=== PATIENT | male | born 1965 | race African-American/Black ===

== ENCOUNTER 2017-10-13 10:43 | Emergency (ER) | payer OTHER ==
[~2017-10-13] VITALS: Ht 185.4 cm; Wt 90.9 kg
[~2017-10-13 10:43] MED LIST: ARIP10TA8 PO; BUSP10TA23 PO; GABA-531 PO; LISI-662 PO; METO25 PO
[2017-10-13 12:01] LABS: ANION GAP 11 mmol/L (8-16); CALCIUM, TOTAL 8.8 mg/dL (8.8-10.5); CARBON DIOXIDE 26 mmol/L (22-29); CHLORIDE 100 mmol/L (98-107); GLOMERULAR FILTR. RATE CALC > 60 mL/min (>60); GLUCOSE,RANDOM 98 mg/dL (70-110); POTASSIUM 3.2 mmol/L (3.5-5.1); SODIUM SERUM 137 mmol/L (136-145); UREA NITROGEN, BLOOD 12 mg/dL (7-18)
[2017-10-13 12:07] LABS: ALANINE AMINOTRANSFERASE 40 U/L (12-78); ALBUMIN 3.8 g/dL (3.4-5.0); ALKALINE PHOSPHATASE 86 U/L (46-116); ASPARTATE AMINOTRANSFERASE 41 U/L (15-37); BILIRUBIN,TOTAL 0.3 mg/dL (0.1-1.0); LIPASE 302 U/L (73-393); TOTAL PROTEIN, SERUM 7.5 g/dL (6.4-8.2)
[2017-10-13 12:08] LABS: AMPHET/METH SCREEN,URINE NEGATIVE (NEGATIVE); BARBITURATE SCREEN, URINE NEGATIVE (NEGATIVE); BENZODIAZEPINES SCREEN,URINE NEGATIVE (NEGATIVE); CANNABINOID SCREEN,URINE NEGATIVE (NEGATIVE); COCAINE SCREEN,URINE NEGATIVE (NEGATIVE); METHADONE SCREEN, URINE NEGATIVE (NEGATIVE); OPIATE SCREEN,URINE NEGATIVE (NEGATIVE)
[2017-10-13 12:09] LABS: PHENCYCLIDINE SCREEN,URINE NEGATIVE (NEGATIVE)
[2017-10-13 12:26] LABS: BASOPHILS % (AUTO) 0.8 % (0.0-2.0); HEMATOCRIT 39.8 % (41-53); HEMOGLOBIN 14.2 g/dL (13.5-17.5); LYMPHOCYTES # (AUTO) 2.7 K/uL (1.0-4.8); LYMPHOCYTES % (AUTO) 32.5 % (22.0-44.0); MEAN CORPUSCULAR HEMOGLOBIN 34.9 pg (26.0-34.0); MEAN CORPUSCULAR HGB CONC 35.7 G/dL (31.0-37.0); MEAN CORPUSCULAR VOLUME 98 fL (80-100); MONOCYTES # (AUTO) 0.6 K/uL (0.1-1.0); MONOCYTES % (AUTO) 7.5 % (2.0-9.0); NEUTROPHILS # (AUTO) 4.7 K/uL (1.8-7.7); NEUTROPHILS % (AUTO) 57.2 % (40.0-70.0); PLATELET COUNT (AUTO) 287 K/uL (150-450); RED BLOOD CELL COUNT(AUTO) 4.07 MIL/uL (4.50-5.90); RED CELL DISTRIBUTION WIDTH 13.3 % (11.5-14.5)
[2017-10-13 13:47] VITALS: BP 120/98
[2017-10-13] MEDS ORDERED: SERT100T12 PO (16:03)
[2017-10-13] MEDS ORDERED: HYDR25TA PO (16:03)
[2017-10-13] MEDS ORDERED: LISI40TA4 PO (16:03)
[2017-10-16] MEDS ORDERED: QUET25TA PO (08:09)
[2017-10-16] MEDS ORDERED: SERT50TA12 PO (08:09)
== END 2017-10-13 15:01 | disposition home or self-care (01) ==
LOC: EMS 10:46
DX: T51.91XA Toxic effect of unspecified alcohol, accidental (unintentional), initial encounter (principal); F20.9 Schizophrenia, unspecified; F17.210 Nicotine dependence, cigarettes, uncomplicated; R07.9 Chest pain, unspecified; F32.9 Major depressive disorder, single episode, unspecified; I10 Essential (primary) hypertension; Y92.89 Other specified places as the place of occurrence of the external cause
CPT/HCPCS: 36415; 71045; 80053; 80307; 83690; 84484; 85025; 93005; 99285; 99406; G0480

== ENCOUNTER 2017-10-22 07:56 | Emergency (ER) | payer OTHER, MEDICAID ==
[~2017-10-22] VITALS: Ht 185.4 cm; Wt 84.1 kg
[~2017-10-22 07:56] MED LIST changes: -ARIP10TA8 PO; -BUSP10TA23 PO; -GABA-531 PO; +HYDR25TA PO; -LISI-662 PO; +LISI40TA4 PO; -METO25 PO; +QUET25TA PO; +SERT50TA12 PO
[2017-10-22] MEDS ORDERED: KETOROLAC TROMETHAMINE 60 MG/2 ML VIAL IM ONE (08:45)
[2017-10-22 08:47] VITALS: BP 143/95
== END 2017-10-22 09:21 | disposition home or self-care (01) ==
LOC: EMS 07:57
DX: M62.838 Other muscle spasm (principal); G89.29 Other chronic pain; F17.210 Nicotine dependence, cigarettes, uncomplicated; I11.9 Hypertensive heart disease without heart failure; Z88.6 Allergy status to analgesic agent; Z88.8 Allergy status to other drugs, medicaments and biological substances; Z91.011 Allergy to milk products
CPT/HCPCS: 96372; 99283; 99406; J1885

== ENCOUNTER 2017-12-05 19:55 | Emergency (ER) | payer MEDICARE, MEDICAID ==
[~2017-12-05] VITALS: Ht 185.4 cm; Wt 84.5 kg
[2017-12-05 20:28] LABS: BASOPHILS % (AUTO) 0.6 % (0.0-2.0); EOSINOPHILS % (AUTO) 2.4 % (1.0-6.0); HEMOGLOBIN 15.6 g/dL (13.5-17.5); LYMPHOCYTES # (AUTO) 1.5 K/uL (1.0-4.8); LYMPHOCYTES % (AUTO) 19.2 % (22.0-44.0); MEAN CORPUSCULAR HEMOGLOBIN 35.1 pg (26.0-34.0); MEAN CORPUSCULAR HGB CONC 36.2 G/dL (31.0-37.0); MEAN CORPUSCULAR VOLUME 97 fL (80-100); MONOCYTES # (AUTO) 0.8 K/uL (0.1-1.0); MONOCYTES % (AUTO) 9.7 % (2.0-9.0); NEUTROPHILS # (AUTO) 5.4 K/uL (1.8-7.7); NEUTROPHILS % (AUTO) 68.1 % (40.0-70.0); PLATELET COUNT (AUTO) 243 K/uL (150-450); RED BLOOD CELL COUNT(AUTO) 4.45 MIL/uL (4.50-5.90); RED CELL DISTRIBUTION WIDTH 13.4 % (11.5-14.5)
[2017-12-05 20:40] LABS: ANION GAP 7 mmol/L (8-16); CALCIUM, TOTAL 9.4 mg/dL (8.8-10.5); CARBON DIOXIDE 31 mmol/L (22-29); CHLORIDE 94 mmol/L (98-107); CREATININE 1.19 mg/dL (0.60-1.30); GLOMERULAR FILTR. RATE CALC > 60 mL/min (>60); GLUCOSE,RANDOM 127 mg/dL (70-110); POTASSIUM 3.2 mmol/L (3.5-5.1); SODIUM SERUM 132 mmol/L (136-145); UREA NITROGEN, BLOOD 9 mg/dL (7-18)
[2017-12-05 20:49] LABS: ALANINE AMINOTRANSFERASE 156 U/L (12-78); ALBUMIN 3.7 g/dL (3.4-5.0); ALKALINE PHOSPHATASE 124 U/L (46-116); ASPARTATE AMINOTRANSFERASE 199 U/L (15-37); BILIRUBIN,TOTAL 1.2 mg/dL (0.1-1.0); LIPASE 847 U/L (73-393); TOTAL PROTEIN, SERUM 8.4 g/dL (6.4-8.2)
[2017-12-05 21:06] LABS: APPEARANCE,URINE CLEAR (CLEAR); BILIRUBIN,URINE NEGATIVE (NEGATIVE); GLUCOSE, URINE (UA) NEGATIVE (NEGATIVE); KETONES,URINE NEGATIVE (NEGATIVE); LEUKOCYTE ESTERASE ,URINE NEGATIVE (NEGATIVE); NITRATE,URINE NEGATIVE (NEGATIVE); OCCULT BLOOD,URINE NEGATIVE (NEGATIVE); PH,URINE 7.5 (5.0-8.0); PROTEIN,URINE NEGATIVE (NEGATIVE); UROBILINOGEN,URINE 0.2 mg/dL (<=1.0)
[2017-12-05] MEDS ORDERED: SODIUM CHLORIDE 0.9% 1,000 ML IV ONE (22:45)
[2017-12-05] MEDS ORDERED: MORPHINE SULFATE 4 MG/ML SYRINGE IVP ONE (22:45)
[2017-12-05] MEDS: POTASSIUM CHL 10 MEQ/WATER 50 ML IV SCH (23:08)
[2017-12-05] MEDS ORDERED: HydrALAZINE HCL 20 MG/ML VIAL IVP ONE (23:15)
[2017-12-06] MEDS: POTASSIUM CHL 10 MEQ/WATER 50 ML IV SCH (00:08)
[2017-12-06 00:23] VITALS: BP 183/96
== END 2017-12-06 00:47 | disposition short-term general hospital (02) ==
LOC: EMS 19:57
DX: K85.90 Acute pancreatitis without necrosis or infection, unspecified (principal); E87.6 Hypokalemia; I10 Essential (primary) hypertension; F17.210 Nicotine dependence, cigarettes, uncomplicated; Z91.011 Allergy to milk products; Z88.8 Allergy status to other drugs, medicaments and biological substances
CPT/HCPCS: 36415; 76705; 80053; 81003; 83690; 85025; 96361; 96365; 96375; 99285; J0360; J2270; J3480 ×2; J7030

== ENCOUNTER 2018-07-03 10:55 | Emergency (ER) | payer MEDICARE, OTHER ==
[~2018-07-03] VITALS: Ht 185.4 cm; Wt 84.5 kg
[2018-07-03] MEDS ORDERED: THIA100T67 PO (11:19)
[2018-07-03] MEDS ORDERED: OLAN5TAB2 PO (11:19)
[2018-07-03] MEDS ORDERED: FOLI1 PO (11:19)
[2018-07-03] MEDS ORDERED: CEPH500 PO (11:19)
[2018-07-03] MEDS ORDERED: MIRT15 PO (11:19)
[2018-07-03] MEDS ORDERED: GABA-531 PO (11:19)
[2018-07-03] MEDS ORDERED: LISI-662 PO (11:19)
[2018-07-03] MEDS ORDERED: TAMS0.4C32 PO (11:19)
[2018-07-03] MEDS ORDERED: LIDOCAINE 5% TRANSDERMAL PATCH TD ONE (12:45)
[2018-07-03] MEDS ORDERED: HYDROCODONE/ACETAMINOPHEN 5-325 MG TABLET PO ONE (12:45)
[2018-07-03 13:33] VITALS: BP 145/94
== END 2018-07-03 13:55 | disposition home or self-care (01) ==
LOC: EMS 10:56
DX: M54.5 Low back pain (principal); F17.210 Nicotine dependence, cigarettes, uncomplicated; F31.9 Bipolar disorder, unspecified; I10 Essential (primary) hypertension; F20.9 Schizophrenia, unspecified; Z79.899 Other long term (current) drug therapy; Z88.8 Allergy status to other drugs, medicaments and biological substances

== ENCOUNTER 2018-09-12 16:35 | Emergency (ER) | payer MEDICARE, OTHER ==
[~2018-09-12] VITALS: Ht 177.8 cm; Wt 82.7 kg
[~2018-09-12 16:35] MED LIST changes: +CEPH500 PO; +FOLI1 PO; +GABA-531 PO; +LISI-662 PO; -LISI40TA4 PO; +MIRT15 PO; +OLAN5TAB2 PO; -QUET25TA PO; -SERT50TA12 PO; +TAMS0.4C32 PO; +THIA100T67 PO
[2018-09-12 16:48] VITALS: BP 152/74
[2018-09-12 16:59] LABS: GLUCOSE,POINT OF CARE 81 MG/DL (70-110)
[2018-09-12 17:33] LABS: BASOPHILS % (AUTO) 1.5 % (0.0-2.0); EOSINOPHILS % (AUTO) 2.8 % (1.0-6.0); HEMOGLOBIN 15.7 g/dL (13.5-17.5); LYMPHOCYTES # (AUTO) 2.6 K/uL (1.0-4.8); LYMPHOCYTES % (AUTO) 43.7 % (22.0-44.0); MEAN CORPUSCULAR HEMOGLOBIN 35.1 pg (26.0-34.0); MEAN CORPUSCULAR HGB CONC 34.8 G/dL (31.0-37.0); MEAN CORPUSCULAR VOLUME 101 fL (80-100); MONOCYTES # (AUTO) 0.3 K/uL (0.1-1.0); MONOCYTES % (AUTO) 5.6 % (2.0-9.0); NEUTROPHILS # (AUTO) 2.8 K/uL (1.8-7.7); NEUTROPHILS % (AUTO) 46.4 % (40.0-70.0); PLATELET COUNT (AUTO) 279 K/uL (150-450); RED BLOOD CELL COUNT(AUTO) 4.47 MIL/uL (4.50-5.90); RED CELL DISTRIBUTION WIDTH 13.8 % (11.5-14.5)
[2018-09-12 17:44] LABS: ANION GAP 12 mmol/L (8-16); CALCIUM, TOTAL 8.9 mg/dL (8.8-10.5); CARBON DIOXIDE 26 mmol/L (22-29); CHLORIDE 104 mmol/L (98-107); GLOMERULAR FILTR. RATE CALC > 60 mL/min (>60); GLUCOSE,RANDOM 75 mg/dL (70-110); POTASSIUM 3.6 mmol/L (3.5-5.1); SODIUM SERUM 142 mmol/L (136-145); UREA NITROGEN, BLOOD 12 mg/dL (7-18)
[2018-09-12 17:51] LABS: ALANINE AMINOTRANSFERASE 38 U/L (12-78); ALBUMIN 4.2 g/dL (3.4-5.0); ALKALINE PHOSPHATASE 93 U/L (46-116); ASPARTATE AMINOTRANSFERASE 66 U/L (15-37); BILIRUBIN,TOTAL 0.5 mg/dL (0.1-1.0); TOTAL PROTEIN, SERUM 8.5 g/dL (6.4-8.2)
[2018-09-12 18:27] LABS: AMPHET/METH SCREEN,URINE NEGATIVE (NEGATIVE); BARBITURATE SCREEN, URINE NEGATIVE (NEGATIVE); BENZODIAZEPINES SCREEN,URINE NEGATIVE (NEGATIVE); CANNABINOID SCREEN,URINE NEGATIVE (NEGATIVE); COCAINE SCREEN,URINE NEGATIVE (NEGATIVE); METHADONE SCREEN, URINE NEGATIVE (NEGATIVE); OPIATE SCREEN,URINE NEGATIVE (NEGATIVE); PHENCYCLIDINE SCREEN,URINE NEGATIVE (NEGATIVE)
[2018-09-12 18:34] LABS: APPEARANCE,URINE CLEAR (CLEAR); BILIRUBIN,URINE NEGATIVE (NEGATIVE); GLUCOSE, URINE (UA) NEGATIVE (NEGATIVE); KETONES,URINE NEGATIVE (NEGATIVE); LEUKOCYTE ESTERASE ,URINE NEGATIVE (NEGATIVE); NITRATE,URINE NEGATIVE (NEGATIVE); OCCULT BLOOD,URINE NEGATIVE (NEGATIVE); PROTEIN,URINE NEGATIVE (NEGATIVE); UROBILINOGEN,URINE 0.2 mg/dL (<=1.0)
[2018-09-12 18:50] LABS: BACTERIA,URINE None Seen /HPF (None Seen); RBC,URINE None Seen /HPF (0-2); SQUAMOUS EPITHELIAL CELL,UR None Seen /LPF (None Seen); WBC,URINE None Seen /HPF (0-5)
== END 2018-09-12 18:52 | disposition left against medical advice (07) ==
LOC: EMS 16:36
DX: R42 Dizziness and giddiness (principal); Z53.21 Procedure and treatment not carried out due to patient leaving prior to being seen by health care provider
CPT/HCPCS: 36415; 80053; 80307; 81001; 82962; 84484; 85025; 93005; G0480

== ENCOUNTER 2018-10-11 10:22 | Emergency (ER) | payer MEDICARE, OTHER ==
[~2018-10-11] VITALS: Ht 185.4 cm; Wt 99.1 kg
[2018-10-11] MEDS ORDERED: MAGNESIUM SULFATE 2 GM, MVI, ADULT NO.1 WITH VIT K 10 ML, THIAMINE HCL 100 MG, FOLIC AC... IV ONE ×5 (11:30)
[2018-10-11 12:03] LABS: BASOPHILS % (AUTO) 0.6 % (0.0-2.0); EOSINOPHILS % (AUTO) 1.4 % (1.0-6.0); HEMATOCRIT 40.5 % (41-53); HEMOGLOBIN 13.9 g/dL (13.5-17.5); LYMPHOCYTES # (AUTO) 0.8 K/uL (1.0-4.8); LYMPHOCYTES % (AUTO) 22.6 % (22.0-44.0); MEAN CORPUSCULAR HEMOGLOBIN 35.1 pg (26.0-34.0); MEAN CORPUSCULAR HGB CONC 34.3 G/dL (31.0-37.0); MEAN CORPUSCULAR VOLUME 102 fL (80-100); MONOCYTES # (AUTO) 0.3 K/uL (0.1-1.0); MONOCYTES % (AUTO) 8.2 % (2.0-9.0); NEUTROPHILS # (AUTO) 2.3 K/uL (1.8-7.7); NEUTROPHILS % (AUTO) 67.2 % (40.0-70.0); PLATELET COUNT (AUTO) 187 K/uL (150-450); RED BLOOD CELL COUNT(AUTO) 3.96 MIL/uL (4.50-5.90); RED CELL DISTRIBUTION WIDTH 13.9 % (11.5-14.5)
[2018-10-11 12:12] LABS: ANION GAP 9 mmol/L (8-16); CALCIUM, TOTAL 8.8 mg/dL (8.8-10.5); CARBON DIOXIDE 26 mmol/L (22-29); CHLORIDE 103 mmol/L (98-107); CREATININE 0.81 mg/dL (0.60-1.30); GLOMERULAR FILTR. RATE CALC > 60 mL/min (>60); GLUCOSE,RANDOM 159 mg/dL (70-110); POTASSIUM 3.6 mmol/L (3.5-5.1); SODIUM SERUM 138 mmol/L (136-145); UREA NITROGEN, BLOOD 8 mg/dL (7-18)
[2018-10-11 12:18] LABS: ALANINE AMINOTRANSFERASE 50 U/L (12-78); ALBUMIN 3.5 g/dL (3.4-5.0); ALKALINE PHOSPHATASE 76 U/L (46-116); ASPARTATE AMINOTRANSFERASE 122 U/L (15-37); BILIRUBIN,TOTAL 0.3 mg/dL (0.1-1.0); TOTAL PROTEIN, SERUM 7.5 g/dL (6.4-8.2)
[2018-10-11 12:37] LABS: APPEARANCE,URINE CLEAR (CLEAR); BILIRUBIN,URINE NEGATIVE (NEGATIVE); GLUCOSE, URINE (UA) 500 mg/dL (NEGATIVE); KETONES,URINE TRACE mg/dL (NEGATIVE); LEUKOCYTE ESTERASE ,URINE TRACE (NEGATIVE); NITRATE,URINE NEGATIVE (NEGATIVE); OCCULT BLOOD,URINE NEGATIVE (NEGATIVE); PROTEIN,URINE POS 1+ (NEGATIVE); UROBILINOGEN,URINE 0.2 mg/dL (<=1.0)
[2018-10-11 12:41] LABS: AMPHET/METH SCREEN,URINE NEGATIVE (NEGATIVE); BARBITURATE SCREEN, URINE NEGATIVE (NEGATIVE); BENZODIAZEPINES SCREEN,URINE NEGATIVE (NEGATIVE); CANNABINOID SCREEN,URINE NEGATIVE (NEGATIVE); COCAINE SCREEN,URINE NEGATIVE (NEGATIVE); METHADONE SCREEN, URINE NEGATIVE (NEGATIVE); OPIATE SCREEN,URINE NEGATIVE (NEGATIVE)
[2018-10-11 12:42] LABS: PHENCYCLIDINE SCREEN,URINE NEGATIVE (NEGATIVE)
[2018-10-11 13:14] LABS: BACTERIA,URINE None Seen /HPF (None Seen); RBC,URINE 0-2 /HPF (0-2); WBC,URINE 0-2 /HPF (0-5)
[2018-10-11 15:10] VITALS: BP 145/85
== END 2018-10-11 15:18 | disposition home or self-care (01) ==
LOC: EMS 10:23
DX: S09.90XA Unspecified injury of head, initial encounter (principal); F10.129 Alcohol abuse with intoxication, unspecified; Y90.6 Blood alcohol level of 120-199 mg/100 ml; F17.210 Nicotine dependence, cigarettes, uncomplicated; F32.9 Major depressive disorder, single episode, unspecified; I11.9 Hypertensive heart disease without heart failure; F20.9 Schizophrenia, unspecified; Z88.8 Allergy status to other drugs, medicaments and biological substances; Z79.899 Other long term (current) drug therapy; W19.XXXA Unspecified fall, initial encounter; Y93.89 Activity, other specified; Y92.89 Other specified places as the place of occurrence of the external cause; Y99.8 Other external cause status
CPT/HCPCS: 36415; 70450; 72125; 80053; 80307; 81001; 85025; 96365; 99285; 99406; G0480; J3411; J3475; J3490 ×2; J7030

== ENCOUNTER 2018-12-01 11:56 | Inpatient (IN) | payer OTHER, MEDICAID ==
[~2018-12-01] VITALS: Ht 185.4 cm; Wt 85.1 kg
[~2018-12-01 11:56] MED LIST changes: -CEPH500 PO; -FOLI1 PO
[2018-12-01 13:09] LABS: BASOPHILS % (AUTO) 1.2 % (0.0-2.0); EOSINOPHILS % (AUTO) 4.5 % (1.0-6.0); HEMATOCRIT 42.3 % (41-53); HEMOGLOBIN 14.5 g/dL (13.5-17.5); LYMPHOCYTES # (AUTO) 2.1 K/uL (1.0-4.8); LYMPHOCYTES % (AUTO) 35.5 % (22.0-44.0); MEAN CORPUSCULAR HEMOGLOBIN 34.2 pg (26.0-34.0); MEAN CORPUSCULAR HGB CONC 34.2 G/dL (31.0-37.0); MEAN CORPUSCULAR VOLUME 100 fL (80-100); MONOCYTES # (AUTO) 0.4 K/uL (0.1-1.0); MONOCYTES % (AUTO) 7.6 % (2.0-9.0); NEUTROPHILS % (AUTO) 51.2 % (40.0-70.0); PLATELET COUNT (AUTO) 279 K/uL (150-450); RED BLOOD CELL COUNT(AUTO) 4.22 MIL/uL (4.50-5.90); RED CELL DISTRIBUTION WIDTH 13.5 % (11.5-14.5)
[2018-12-01 13:29] LABS: ANION GAP 9 mmol/L (8-16); CALCIUM, TOTAL 9.3 mg/dL (8.8-10.5); CARBON DIOXIDE 28 mmol/L (22-29); CHLORIDE 98 mmol/L (98-107); CREATININE 1.09 mg/dL (0.60-1.30); GLOMERULAR FILTR. RATE CALC > 60 mL/min (>60); GLUCOSE,RANDOM 131 mg/dL (70-110); POTASSIUM 3.7 mmol/L (3.5-5.1); SODIUM SERUM 135 mmol/L (136-145); UREA NITROGEN, BLOOD 14 mg/dL (7-18)
[2018-12-01 13:34] LABS: ALANINE AMINOTRANSFERASE 27 U/L (12-78); ALBUMIN 3.9 g/dL (3.4-5.0); ALKALINE PHOSPHATASE 71 U/L (46-116); ASPARTATE AMINOTRANSFERASE 36 U/L (15-37); BILIRUBIN,TOTAL 0.3 mg/dL (0.1-1.0)
[2018-12-01 14:14] LABS: AMPHET/METH SCREEN,URINE NEGATIVE (NEGATIVE); BARBITURATE SCREEN, URINE NEGATIVE (NEGATIVE); BENZODIAZEPINES SCREEN,URINE NEGATIVE (NEGATIVE); CANNABINOID SCREEN,URINE NEGATIVE (NEGATIVE); COCAINE SCREEN,URINE NEGATIVE (NEGATIVE); METHADONE SCREEN, URINE NEGATIVE (NEGATIVE); OPIATE SCREEN,URINE NEGATIVE (NEGATIVE)
[2018-12-01 14:16] LABS: PHENCYCLIDINE SCREEN,URINE NEGATIVE (NEGATIVE)
[2018-12-01 14:19] LABS: APPEARANCE,URINE CLEAR (CLEAR); BILIRUBIN,URINE NEGATIVE (NEGATIVE); GLUCOSE, URINE (UA) NEGATIVE (NEGATIVE); KETONES,URINE NEGATIVE (NEGATIVE); LEUKOCYTE ESTERASE ,URINE NEGATIVE (NEGATIVE); NITRATE,URINE NEGATIVE (NEGATIVE); OCCULT BLOOD,URINE NEGATIVE (NEGATIVE); PH,URINE 5.5 (5.0-8.0); PROTEIN,URINE NEGATIVE (NEGATIVE); UROBILINOGEN,URINE 0.2 mg/dL (<=1.0)
[2018-12-01] MEDS ORDERED: HALOPERIDOL 5 MG TABLET PO PRN (14:30)
[2018-12-01] MEDS ORDERED: ZOLPIDEM TARTRATE 10 MG TABLET PO PRN (14:30)
[2018-12-01] MEDS ORDERED: DEXAMETHASONE SOD PHOS 4 MG/ML 5 ML VIAL IM ONE (15:15)
[2018-12-01] MEDS ORDERED: HydrOXYzine HCL 50 MG TABLET PO ONE (15:15)
[2018-12-01] MEDS ORDERED: ACETAMINOPHEN 500 MG TABLET PO ONE (15:15)
[2018-12-01 16:45] VITALS: BP 134/79
[2018-12-01] MEDS ORDERED: LOPERAMIDE HCL 2 MG CAPSULE PO PRN (18:00)
[2018-12-01] MEDS ORDERED: ALBUTEROL SULFATE HFA 90 MCG/PUFF 8 GM INHALER IH PRN (18:00)
[2018-12-01] MEDS ORDERED: ONDANSETRON HCL 4 MG TABLET PO PRN (18:00)
[2018-12-01] MEDS ORDERED: BENZOCAINE/MENTHOL LOZENGE MM PRN (18:00)
[2018-12-01] MEDS ORDERED: MAGNESIUM HYDROXIDE SUSPENSION 30 ML UDCUP PO PRN (18:00)
[2018-12-01] MEDS ORDERED: CloNIDine HCL 0.1 MG TABLET PO PRN (18:00)
[2018-12-01] MEDS ORDERED: BACITRACIN 28.4 GM OINTMENT TP PRN (18:00)
[2018-12-01] MEDS ORDERED: PETROLATUM,WHITE 28 GM JELLY TP PRN (18:00)
[2018-12-01] MEDS: OMEPRAZOLE 20 MG CAPSULE PO SCH (20:48)
[2018-12-01] MEDS: DOCUSATE SODIUM 100 MG CAPSULE PO SCH (20:48)
[2018-12-01] MEDS: NICOTINE 21 MG/24 HOUR PATCH TD SCH (20:49)
[2018-12-02 02:02] VITALS: BP 138/82
[2018-12-02] MEDS: LORazepam 2 MG TABLET PO PRN ×3 (02:02→16:35)
[2018-12-02] MEDS: MAG HYDROX/AL HYDROX/SIMETH ES 30 ML SUSPENSION UDCUP PO PRN ×2 (02:02→18:14)
[2018-12-02] MEDS: ACETAMINOPHEN 325 MG TABLET PO PRN ×2 (02:03→16:34)
[2018-12-02] MEDS ORDERED: PNEUMOCOCCAL VACCINE POLYVALENT 0.5 ML VIAL [PPSV23] IM ONE (04:45)
[2018-12-02 08:23] VITALS: BP 140/90
[2018-12-02] MEDS: OMEPRAZOLE 20 MG CAPSULE PO SCH (08:32)
[2018-12-02] MEDS: DOCUSATE SODIUM 100 MG CAPSULE PO SCH (08:33)
[2018-12-02] MEDS: NICOTINE 21 MG/24 HOUR PATCH TD SCH (08:33)
[2018-12-02 08:34] LABS: CHOL/HDL RATIO 4.6 (4.2-7.3); FREE T4 (FREE THYROXINE) 0.89 ng/dL (0.76-1.46); THYROID STIMULATING HORMONE 0.53 uIU/mL (0.36-3.74)
[2018-12-02] MEDS ORDERED: DENTURE ADHESIVE 68 GM CREAM DT PRN (08:45)
[2018-12-02] MEDS ORDERED: DICLOFENAC SODIUM 1% 100 GM GEL [2GM] TP PRN (08:45)
[2018-12-02] MEDS ORDERED: DENTURE CLEANSER TABLET [8'S] DT PRN (13:45)
[2018-12-02 16:34] VITALS: BP 130/79
[2018-12-02 17:34] VITALS: BP 130/79
[2018-12-02 18:21] VITALS: BP 140/80
[2018-12-02] MEDS ORDERED: QUEtiapine FUMARATE 100 MG TABLET PO SCH (21:00)
[2018-12-03 01:21] VITALS: BP 139/87
[2018-12-03] MEDS: LORazepam 2 MG TABLET PO PRN ×2 (01:29→09:41)
[2018-12-03] MEDS: ACETAMINOPHEN 325 MG TABLET PO PRN ×2 (01:30→09:01)
[2018-12-03 08:23] VITALS: BP 145/84
[2018-12-03] MEDS: OMEPRAZOLE 20 MG CAPSULE PO SCH (08:54)
[2018-12-03] MEDS: DOCUSATE SODIUM 100 MG CAPSULE PO SCH (08:54)
[2018-12-03] MEDS: NICOTINE 21 MG/24 HOUR PATCH TD SCH (08:56)
[2018-12-03] MEDS ORDERED: SERTRALINE HCL 50 MG TABLET PO SCH (09:00)
[2018-12-03] MEDS ORDERED: HYDROCHLOROTHIAZIDE 25 MG TABLET PO SCH (09:00)
[2018-12-03] MEDS ORDERED: GABAPENTIN 300 MG CAPSULE PO SCH (09:00)
[2018-12-03] MEDS ORDERED: TAMSULOSIN HCL 0.4 MG CAPSULE PO SCH (09:00)
[2018-12-03] MEDS ORDERED: THIAMINE HCL 100 MG TABLET PO SCH (09:00)
[2018-12-03] MEDS ORDERED: LISINOPRIL 20 MG TABLET PO SCH (09:00)
[2018-12-03] MEDS ORDERED: OMEP20 PO (13:02)
[2018-12-03] MEDS ORDERED: SERT50TA12 PO (13:02)
[2018-12-03] MEDS ORDERED: DSS100 PO (13:02)
[2018-12-03] MEDS ORDERED: QUET100T PO (13:02)
== END 2018-12-03 13:30 | disposition home or self-care (01) | DRG 885 ==
LOC: EMS 11:56 → B2X 15:20
PROVIDERS: ADMIT Psychiatry & Neurology Psychiatry; ATTEND Psychiatry & Neurology Psychiatry
DX: F25.9 Schizoaffective disorder, unspecified (principal); E87.1 Hypo-osmolality and hyponatremia; R45.851 Suicidal ideations; F10.10 Alcohol abuse, uncomplicated; F17.200 Nicotine dependence, unspecified, uncomplicated; F31.9 Bipolar disorder, unspecified; F41.9 Anxiety disorder, unspecified; I11.9 Hypertensive heart disease without heart failure; J44.9 Chronic obstructive pulmonary disease, unspecified; K21.9 Gastro-esophageal reflux disease without esophagitis; M54.10 Radiculopathy, site unspecified; Z82.49 Family history of ischemic heart disease and other diseases of the circulatory system
CPT/HCPCS: 72040; 84439; 84443; 90732; 96374; G0480; J1100

== ENCOUNTER 2019-07-08 19:29 | Inpatient (IN) | payer OTHER, MEDICAID ==
[~2019-07-08] VITALS: Ht 185.4 cm; Wt 78.0 kg
[~2019-07-08 19:29] MED LIST changes: +DSS100 PO; -MIRT15 PO; -OLAN5TAB2 PO; +OMEP20 PO; +QUET100T PO; +SERT50TA12 PO; +TAMS-13 PO; -TAMS0.4C32 PO
[2019-07-08] MEDS ORDERED: MethylPREDNISolone SOD SUCC 125 MG/2 ML VIAL IVP ONE (21:30)
[2019-07-08] MEDS ORDERED: DiphenhydrAMINE HCL 50 MG/ML VIAL IM ONE (21:30)
[2019-07-08] MEDS ORDERED: RANITIDINE HCL 25 MG/ML 2 ML VIAL IVP ONE (21:30)
[2019-07-08 21:49] LABS: BASOPHILS % (AUTO) 0.6 % (0.0-2.0); EOSINOPHILS % (AUTO) 3.1 % (1.0-6.0); HEMATOCRIT 40.4 % (41-53); LYMPHOCYTES # (AUTO) 1.6 K/uL (1.0-4.8); LYMPHOCYTES % (AUTO) 30.4 % (22.0-44.0); MEAN CORPUSCULAR HGB CONC 34.7 G/dL (31.0-37.0); MEAN CORPUSCULAR VOLUME 104 fL (80-100); MONOCYTES # (AUTO) 0.6 K/uL (0.1-1.0); NEUTROPHILS # (AUTO) 2.8 K/uL (1.8-7.7); NEUTROPHILS % (AUTO) 53.9 % (40.0-70.0); PLATELET COUNT (AUTO) 186 K/uL (150-450); RED CELL DISTRIBUTION WIDTH 13.4 % (11.5-14.5)
[2019-07-08 21:50] LABS: ANION GAP 8 mmol/L (8-16); CALCIUM, TOTAL 9.2 mg/dL (8.8-10.5); CARBON DIOXIDE 29 mmol/L (22-29); CHLORIDE 101 mmol/L (98-107); CREATININE 1.02 mg/dL (0.60-1.30); GLOMERULAR FILTR. RATE CALC > 60 mL/min (>60); GLUCOSE,RANDOM 89 mg/dL (70-110); POTASSIUM 3.5 mmol/L (3.5-5.1); SODIUM SERUM 138 mmol/L (136-145); UREA NITROGEN, BLOOD 13 mg/dL (7-18)
[2019-07-08 21:57] LABS: ALANINE AMINOTRANSFERASE 77 U/L (12-78); ALBUMIN 3.6 g/dL (3.4-5.0); ALKALINE PHOSPHATASE 68 U/L (46-116); ASPARTATE AMINOTRANSFERASE 84 U/L (15-37); BILIRUBIN,TOTAL 0.3 mg/dL (0.1-1.0); TOTAL PROTEIN, SERUM 7.5 g/dL (6.4-8.2)
[2019-07-08 22:08] LABS: APPEARANCE,URINE CLEAR (CLEAR); BILIRUBIN,URINE NEGATIVE (NEGATIVE); GLUCOSE, URINE (UA) NEGATIVE (NEGATIVE); KETONES,URINE NEGATIVE (NEGATIVE); LEUKOCYTE ESTERASE ,URINE SMALL (NEGATIVE); NITRATE,URINE NEGATIVE (NEGATIVE); OCCULT BLOOD,URINE NEGATIVE (NEGATIVE); PH,URINE 6.5 (5.0-8.0); PROTEIN,URINE POS 1+ (NEGATIVE)
[2019-07-08 22:19] LABS: AMPHET/METH SCREEN,URINE POSITIVE (NEGATIVE); BARBITURATE SCREEN, URINE NEGATIVE (NEGATIVE); BENZODIAZEPINES SCREEN,URINE NEGATIVE (NEGATIVE); CANNABINOID SCREEN,URINE POSITIVE (NEGATIVE); COCAINE SCREEN,URINE POSITIVE (NEGATIVE); METHADONE SCREEN, URINE NEGATIVE (NEGATIVE); OPIATE SCREEN,URINE NEGATIVE (NEGATIVE)
[2019-07-08 22:20] LABS: PHENCYCLIDINE SCREEN,URINE NEGATIVE (NEGATIVE)
[2019-07-08 22:27] LABS: BACTERIA,URINE None Seen /HPF (None Seen); RBC,URINE 0-2 /HPF (0-2); SQUAMOUS EPITHELIAL CELL,UR Few /LPF (None Seen)
[2019-07-09] MEDS ORDERED: HALOPERIDOL 5 MG TABLET PO PRN (00:15)
[2019-07-09 02:20] VITALS: BP 142/90
[2019-07-09] MEDS: ZOLPIDEM TARTRATE 10 MG TABLET PO PRN (02:25)
[2019-07-09] MEDS: LORazepam 2 MG TABLET PO PRN ×2 (02:25→15:08)
[2019-07-09] MEDS ORDERED: INFLUENZA VIRUS VACCINE QVS 2019-20 (3YR+)/PF 60 MCG/0.5 ML SYRINGE IM ONE (03:00)
[2019-07-09 08:24] VITALS: BP 152/90
[2019-07-09 19:29] VITALS: BP 141/70
[2019-07-09] MEDS ORDERED: CloNIDine HCL 0.1 MG TABLET PO PRN (20:30)
[2019-07-09] MEDS ORDERED: BACITRACIN 28.4 GM OINTMENT TP PRN (20:30)
[2019-07-09] MEDS ORDERED: ALBUTEROL SULFATE HFA 90 MCG/PUFF 8 GM INHALER IH PRN (20:30)
[2019-07-09] MEDS ORDERED: PETROLATUM,WHITE 28 GM JELLY TP PRN (20:30)
[2019-07-09] MEDS ORDERED: DOCUSATE SODIUM 100 MG CAPSULE PO PRN (20:30)
[2019-07-09] MEDS ORDERED: ONDANSETRON HCL 4 MG TABLET PO PRN (20:30)
[2019-07-09] MEDS ORDERED: MAG HYDROX/AL HYDROX/SIMETH ES 30 ML SUSPENSION UDCUP PO PRN (20:30)
[2019-07-09] MEDS ORDERED: LOPERAMIDE HCL 2 MG CAPSULE PO PRN (20:30)
[2019-07-09] MEDS ORDERED: ACETAMINOPHEN 325 MG TABLET PO PRN (20:30)
[2019-07-09] MEDS ORDERED: BENZOCAINE/MENTHOL LOZENGE MM PRN (20:30)
[2019-07-09] MEDS ORDERED: OMEPRAZOLE 20 MG CAPSULE PO PRN (20:30)
[2019-07-09] MEDS ORDERED: MAGNESIUM HYDROXIDE SUSPENSION 30 ML UDCUP PO PRN (20:30)
[2019-07-10 07:35] LABS: CHOL/HDL RATIO 1.8 (4.2-7.3)
[2019-07-10 08:30] VITALS: BP 148/101
[2019-07-10] MEDS: GABAPENTIN 300 MG CAPSULE PO SCH (08:57)
[2019-07-10] MEDS: TAMSULOSIN HCL 0.4 MG CAPSULE PO SCH (08:57)
[2019-07-10] MEDS: THIAMINE HCL 100 MG TABLET PO SCH (08:58)
[2019-07-10] MEDS: LISINOPRIL 20 MG TABLET PO SCH (08:58)
[2019-07-10] MEDS: HYDROCHLOROTHIAZIDE 25 MG TABLET PO SCH (08:58)
[2019-07-10] MEDS ORDERED: DiphenhydrAMINE HCL 25 MG CAPSULE PO PRN (11:45)
[2019-07-10] MEDS: PredniSONE 20 MG TABLET PO SCH (12:41)
[2019-07-10 16:25] VITALS: BP 136/84
[2019-07-10] MEDS: SERTRALINE HCL 50 MG TABLET PO SCH (16:48)
[2019-07-10] MEDS: LORazepam 2 MG TABLET PO PRN (16:48)
[2019-07-10] MEDS: ARIPiprazole 10 MG TABLET PO SCH (16:48)
[2019-07-10 21:31] LABS: ALANINE AMINOTRANSFERASE 83 U/L (12-78); ALBUMIN 3.3 g/dL (3.4-5.0); ALKALINE PHOSPHATASE 59 U/L (46-116); ANION GAP 7 mmol/L (8-16); ASPARTATE AMINOTRANSFERASE 74 U/L (15-37); BILIRUBIN,TOTAL 0.2 mg/dL (0.1-1.0); CALCIUM, TOTAL 9.2 mg/dL (8.8-10.5); CARBON DIOXIDE 28 mmol/L (22-29); CHLORIDE 100 mmol/L (98-107); CREATININE 0.92 mg/dL (0.60-1.30); GLOMERULAR FILTR. RATE CALC > 60 mL/min (>60); GLUCOSE,RANDOM 193 mg/dL (70-110); POTASSIUM 4.2 mmol/L (3.5-5.1); SODIUM SERUM 135 mmol/L (136-145); UREA NITROGEN, BLOOD 20 mg/dL (7-18)
[2019-07-11] MEDS: LORazepam 2 MG TABLET PO PRN ×2 (01:54→18:59)
[2019-07-11 01:55] VITALS: BP 146/80
[2019-07-11] MEDS: LISINOPRIL 20 MG TABLET PO SCH (09:28)
[2019-07-11] MEDS: GABAPENTIN 300 MG CAPSULE PO SCH (09:28)
[2019-07-11] MEDS: TAMSULOSIN HCL 0.4 MG CAPSULE PO SCH (09:28)
[2019-07-11] MEDS: HYDROCHLOROTHIAZIDE 25 MG TABLET PO SCH (09:28)
[2019-07-11] MEDS: SERTRALINE HCL 50 MG TABLET PO SCH (09:28)
[2019-07-11] MEDS: ARIPiprazole 10 MG TABLET PO SCH (09:28)
[2019-07-11] MEDS: PredniSONE 20 MG TABLET PO SCH (09:31)
[2019-07-11] MEDS: THIAMINE HCL 100 MG TABLET PO SCH (09:36)
[2019-07-11 12:54] VITALS: BP 148/80
[2019-07-11 20:02] VITALS: BP 138/84
[2019-07-12 08:43] VITALS: BP 171/110
[2019-07-12] MEDS: PredniSONE 20 MG TABLET PO SCH (08:46)
[2019-07-12] MEDS: GABAPENTIN 300 MG CAPSULE PO SCH (08:49)
[2019-07-12] MEDS: LISINOPRIL 20 MG TABLET PO SCH (08:49)
[2019-07-12] MEDS: LORazepam 2 MG TABLET PO PRN (08:49)
[2019-07-12] MEDS: SERTRALINE HCL 50 MG TABLET PO SCH (08:49)
[2019-07-12] MEDS: TAMSULOSIN HCL 0.4 MG CAPSULE PO SCH (08:49)
[2019-07-12] MEDS: THIAMINE HCL 100 MG TABLET PO SCH (08:49)
[2019-07-12] MEDS: ARIPiprazole 10 MG TABLET PO SCH (08:49)
[2019-07-12] MEDS: HYDROCHLOROTHIAZIDE 25 MG TABLET PO SCH (08:49)
[2019-07-12 16:00] VITALS: BP 129/75
[2019-07-12] MEDS: ZOLPIDEM TARTRATE 10 MG TABLET PO PRN (22:00)
[2019-07-13] MEDS: PredniSONE 20 MG TABLET PO SCH (08:36)
[2019-07-13] MEDS: LISINOPRIL 20 MG TABLET PO SCH (08:36)
[2019-07-13] MEDS: THIAMINE HCL 100 MG TABLET PO SCH (08:36)
[2019-07-13] MEDS: GABAPENTIN 300 MG CAPSULE PO SCH (08:36)
[2019-07-13] MEDS: TAMSULOSIN HCL 0.4 MG CAPSULE PO SCH (08:36)
[2019-07-13] MEDS: HYDROCHLOROTHIAZIDE 25 MG TABLET PO SCH (08:36)
[2019-07-13] MEDS: ARIPiprazole 10 MG TABLET PO SCH (08:36)
[2019-07-13] MEDS: SERTRALINE HCL 50 MG TABLET PO SCH (08:36)
[2019-07-13 08:38] VITALS: BP 171/101
[2019-07-13] MEDS ORDERED: ARIP10TA8 PO (14:50)
== END 2019-07-13 15:30 | disposition home or self-care (01) | DRG 885 ==
LOC: EMS 19:29 → 3EC 07-09 01:00
PROVIDERS: ADMIT Psychiatry & Neurology Psychiatry; ATTEND Psychiatry & Neurology Psychiatry
DX: F25.1 Schizoaffective disorder, depressive type (principal); E87.1 Hypo-osmolality and hyponatremia; R45.851 Suicidal ideations; F10.10 Alcohol abuse, uncomplicated; F14.10 Cocaine abuse, uncomplicated; F15.10 Other stimulant abuse, uncomplicated; I10 Essential (primary) hypertension; F17.210 Nicotine dependence, cigarettes, uncomplicated; J44.9 Chronic obstructive pulmonary disease, unspecified; K21.9 Gastro-esophageal reflux disease without esophagitis; Z59.0 Homelessness; Z79.899 Other long term (current) drug therapy; Z82.49 Family history of ischemic heart disease and other diseases of the circulatory system
CPT/HCPCS: 87086; 93005; G0480; J1200; J2780; J2930

== ENCOUNTER 2019-10-03 16:37 | Emergency (ER) | payer MEDICAID, OTHER ==
[~2019-10-03] VITALS: Ht 185.4 cm; Wt 72.0 kg
[~2019-10-03 16:37] MED LIST changes: +ARIP10TA8 PO; -DSS100 PO; -OMEP20 PO; -QUET100T PO
[2019-10-03 18:48] LABS: EOSINOPHILS % (AUTO) 3.8 % (1.0-6.0); HEMOGLOBIN 15.4 g/dL (13.5-17.5); LYMPHOCYTES # (AUTO) 1.2 K/uL (1.0-4.8); LYMPHOCYTES % (AUTO) 23.1 % (22.0-44.0); MEAN CORPUSCULAR HEMOGLOBIN 35.4 pg (26.0-34.0); MEAN CORPUSCULAR VOLUME 101 fL (80-100); MONOCYTES # (AUTO) 0.5 K/uL (0.1-1.0); MONOCYTES % (AUTO) 10.4 % (2.0-9.0); NEUTROPHILS # (AUTO) 3.2 K/uL (1.8-7.7); NEUTROPHILS % (AUTO) 61.7 % (40.0-70.0); PLATELET COUNT (AUTO) 201 K/uL (150-450); RED BLOOD CELL COUNT(AUTO) 4.34 MIL/uL (4.50-5.90); RED CELL DISTRIBUTION WIDTH 13.5 % (11.5-14.5)
[2019-10-03 18:58] LABS: ANION GAP 10 mmol/L (8-16); CARBON DIOXIDE 27 mmol/L (22-29); CHLORIDE 97 mmol/L (98-107); CREATININE 0.96 mg/dL (0.60-1.30); GLOMERULAR FILTR. RATE CALC > 60 mL/min (>60); GLUCOSE,RANDOM 160 mg/dL (70-110); POTASSIUM 3.2 mmol/L (3.5-5.1); SODIUM SERUM 134 mmol/L (136-145); UREA NITROGEN, BLOOD 11 mg/dL (7-18)
[2019-10-03] MEDS ORDERED: CloNIDine HCL 0.2 MG TABLET PO ONE (19:00)
[2019-10-03 19:23] LABS: ALANINE AMINOTRANSFERASE 98 U/L (12-78); ALBUMIN 4.1 g/dL (3.4-5.0); ALKALINE PHOSPHATASE 88 U/L (46-116); ASPARTATE AMINOTRANSFERASE 124 U/L (15-37); BILIRUBIN,TOTAL 0.7 mg/dL (0.1-1.0); CREATINE KINASE, TOTAL ONLY 528 U/L (39-308); TOTAL PROTEIN, SERUM 8.8 g/dL (6.4-8.2)
[2019-10-03 19:30] LABS: B-TYPE NATRIURETIC PEPTIDE 72 pg/mL (0-100)
[2019-10-03] MEDS ORDERED: POTASSIUM CHLORIDE 20 MEQ ER TABLET PO ONE (20:00)
[2019-10-03] MEDS ORDERED: SODIUM CHLORIDE 0.9% 1,000 ML IV ONE (20:00)
[2019-10-03 21:30] VITALS: BP 165/87
== END 2019-10-03 22:00 | disposition home or self-care (01) ==
LOC: EMS 16:39
DX: I11.9 Hypertensive heart disease without heart failure (principal); E86.0 Dehydration; R42 Dizziness and giddiness; F10.20 Alcohol dependence, uncomplicated; F31.9 Bipolar disorder, unspecified; F20.9 Schizophrenia, unspecified; F17.210 Nicotine dependence, cigarettes, uncomplicated; F12.90 Cannabis use, unspecified, uncomplicated; F15.90 Other stimulant use, unspecified, uncomplicated; Z79.899 Other long term (current) drug therapy; Z88.8 Allergy status to other drugs, medicaments and biological substances; Z91.011 Allergy to milk products
CPT/HCPCS: 36415; 71045; 80053; 82550; 83880; 84484; 85025; 85610; 85730; 93005; 96360; 99285; J7030

== ENCOUNTER 2020-03-05 08:36 | Inpatient (IN) | payer MEDICARE, MEDICAID ==
[~2020-03-05] VITALS: Ht 185.4 cm; Wt 78.9 kg
[2020-03-05 09:07] LABS: BASOPHILS % (AUTO) 0.9 % (0.0-2.0); EOSINOPHILS % (AUTO) 4.1 % (1.0-6.0); HEMATOCRIT 37.9 % (41-53); HEMOGLOBIN 13.2 g/dL (13.5-17.5); LYMPHOCYTES # (AUTO) 1.5 K/uL (1.0-4.8); LYMPHOCYTES % (AUTO) 22.2 % (22.0-44.0); MEAN CORPUSCULAR HEMOGLOBIN 35.8 pg (26.0-34.0); MEAN CORPUSCULAR HGB CONC 34.9 G/dL (31.0-37.0); MEAN CORPUSCULAR VOLUME 103 fL (80-100); MONOCYTES # (AUTO) 0.9 K/uL (0.1-1.0); MONOCYTES % (AUTO) 13.6 % (2.0-9.0); NEUTROPHILS # (AUTO) 4.1 K/uL (1.8-7.7); NEUTROPHILS % (AUTO) 59.2 % (40.0-70.0); PLATELET COUNT (AUTO) 225 K/uL (150-450); RED CELL DISTRIBUTION WIDTH 13.9 % (11.5-14.5)
[2020-03-05 09:25] LABS: ANION GAP 4 mmol/L (8-16); CALCIUM, TOTAL 9.6 mg/dL (8.8-10.5); CARBON DIOXIDE 32 mmol/L (22-29); CHLORIDE 100 mmol/L (98-107); CREATININE 1.18 mg/dL (0.60-1.30); GLOMERULAR FILTR. RATE CALC > 60 mL/min (>60); GLUCOSE,RANDOM 121 mg/dL (70-110); POTASSIUM 3.7 mmol/L (3.5-5.1); SODIUM SERUM 136 mmol/L (136-145); UREA NITROGEN, BLOOD 10 mg/dL (7-18)
[2020-03-05 09:29] LABS: ALANINE AMINOTRANSFERASE 44 U/L (12-78); ALBUMIN 3.6 g/dL (3.4-5.0); ALKALINE PHOSPHATASE 78 U/L (46-116); ASPARTATE AMINOTRANSFERASE 37 U/L (15-37); BILIRUBIN,TOTAL 0.2 mg/dL (0.1-1.0); TOTAL PROTEIN, SERUM 7.8 g/dL (6.4-8.2)
[2020-03-05 10:53] LABS: AMPHET/METH SCREEN,URINE POSITIVE (NEGATIVE); BARBITURATE SCREEN, URINE NEGATIVE (NEGATIVE); BENZODIAZEPINES SCREEN,URINE NEGATIVE (NEGATIVE); CANNABINOID SCREEN,URINE NEGATIVE (NEGATIVE); COCAINE SCREEN,URINE NEGATIVE (NEGATIVE); METHADONE SCREEN, URINE NEGATIVE (NEGATIVE); OPIATE SCREEN,URINE NEGATIVE (NEGATIVE)
[2020-03-05 10:59] LABS: PHENCYCLIDINE SCREEN,URINE NEGATIVE (NEGATIVE)
[2020-03-05] MEDS ORDERED: ZOLPIDEM TARTRATE 10 MG TABLET PO PRN (14:15)
[2020-03-05] MEDS ORDERED: HALOPERIDOL 5 MG TABLET PO PRN (14:15)
[2020-03-05 16:36] VITALS: BP 141/75
[2020-03-06 05:29] VITALS: BP 138/81
[2020-03-06] MEDS ORDERED: NICOTINE 14 MG/24 HOUR PATCH TD PRN (07:30)
[2020-03-06] MEDS ORDERED: LOPERAMIDE HCL 2 MG CAPSULE PO PRN (07:30)
[2020-03-06] MEDS ORDERED: CloNIDine HCL 0.1 MG TABLET PO PRN (07:30)
[2020-03-06] MEDS ORDERED: ACETAMINOPHEN 325 MG TABLET PO PRN (07:30)
[2020-03-06] MEDS ORDERED: ONDANSETRON HCL 4 MG TABLET PO PRN (07:30)
[2020-03-06] MEDS ORDERED: DOCUSATE SODIUM 100 MG CAPSULE PO PRN (07:30)
[2020-03-06] MEDS ORDERED: MAGNESIUM HYDROXIDE SUSPENSION 30 ML UDCUP PO PRN (07:30)
[2020-03-06] MEDS ORDERED: MAG HYDROX/AL HYDROX/SIMETH ES 30 ML SUSPENSION UDCUP PO PRN (07:30)
[2020-03-06] MEDS ORDERED: PETROLATUM,WHITE 28 GM JELLY TP PRN (07:30)
[2020-03-06] MEDS ORDERED: ALBUTEROL SULFATE HFA 90 MCG/PUFF 8 GM INHALER IH PRN (07:30)
[2020-03-06] MEDS ORDERED: GuaiFENesin/D-METHORPHAN [SUGAR-FREE] 200-20MG/10 ML SYRUP UDCUP PO PRN (07:30)
[2020-03-06 08:03] VITALS: BP 145/89
[2020-03-06] MEDS: LISINOPRIL 20 MG TABLET PO SCH (08:36)
[2020-03-06] MEDS: NICOTINE 21 MG/24 HOUR PATCH TD SCH (08:58)
[2020-03-06] MEDS: ARIPiprazole 10 MG TABLET PO SCH (13:06)
[2020-03-06] MEDS: SERTRALINE HCL 50 MG TABLET PO SCH (13:06)
[2020-03-06 16:09] VITALS: BP 138/83
[2020-03-07 06:30] VITALS: BP 140/86
[2020-03-07 08:11] VITALS: BP 140/79
[2020-03-07] MEDS: NICOTINE 21 MG/24 HOUR PATCH TD SCH (08:42)
[2020-03-07] MEDS: ARIPiprazole 10 MG TABLET PO SCH (08:42)
[2020-03-07] MEDS: LISINOPRIL 20 MG TABLET PO SCH (08:42)
[2020-03-07] MEDS: SERTRALINE HCL 50 MG TABLET PO SCH (08:43)
[2020-03-07] MEDS: LORazepam 2 MG TABLET PO PRN ×2 (12:25→20:22)
[2020-03-07 16:06] VITALS: BP 139/86
[2020-03-08 03:08] VITALS: BP 139/71
[2020-03-08 08:13] VITALS: BP 137/68
[2020-03-08] MEDS: ARIPiprazole 10 MG TABLET PO SCH (08:39)
[2020-03-08] MEDS: SERTRALINE HCL 50 MG TABLET PO SCH (08:39)
[2020-03-08] MEDS: LISINOPRIL 20 MG TABLET PO SCH (08:40)
[2020-03-08] MEDS: NICOTINE 21 MG/24 HOUR PATCH TD SCH (09:00)
[2020-03-08 16:11] VITALS: BP 156/90
[2020-03-08] MEDS: LORazepam 2 MG TABLET PO PRN (16:57)
[2020-03-09 02:17] VITALS: BP 136/88
[2020-03-09] MEDS: SERTRALINE HCL 50 MG TABLET PO SCH (08:16)
[2020-03-09] MEDS: ARIPiprazole 10 MG TABLET PO SCH (08:16)
[2020-03-09] MEDS: LISINOPRIL 20 MG TABLET PO SCH (08:16)
[2020-03-09] MEDS: LORazepam 2 MG TABLET PO PRN (08:20)
[2020-03-09] MEDS: NICOTINE 21 MG/24 HOUR PATCH TD SCH (08:22)
[2020-03-09 08:30] VITALS: BP 116/86
[2020-03-09] MEDS ORDERED: SERT50TA12 PO (12:08)
[2020-03-09] MEDS ORDERED: ARIP10TA8 PO (12:08)
[2020-03-09] MEDS ORDERED: LISI-662 PO ×2 (15:44→15:45)
== END 2020-03-09 16:30 | disposition home or self-care (01) | DRG 885 ==
LOC: EMS 08:37 → B3A 15:13
DX: F25.1 Schizoaffective disorder, depressive type (principal); R45.851 Suicidal ideations; I42.9 Cardiomyopathy, unspecified; K59.00 Constipation, unspecified; K21.9 Gastro-esophageal reflux disease without esophagitis; Z79.899 Other long term (current) drug therapy; Z91.5 Personal history of self-harm; D64.9 Anemia, unspecified; F15.10 Other stimulant abuse, uncomplicated; F17.200 Nicotine dependence, unspecified, uncomplicated; F10.10 Alcohol abuse, uncomplicated; Z91.14 Patient's other noncompliance with medication regimen; F12.90 Cannabis use, unspecified, uncomplicated; Z88.8 Allergy status to other drugs, medicaments and biological substances; I11.9 Hypertensive heart disease without heart failure
CPT/HCPCS: 87081; G0480